=== PATIENT | male | born 1975 | race Two or more races ===

== ENCOUNTER 2017-01-30 01:36 | Emergency (ER) | payer MEDICAID ==
[~2017-01-30] VITALS: Ht 182.9 cm; Wt 99.0 kg
[2017-01-30] MEDS ORDERED: VISCOUS LIDOCAINE 2% 15 ML UDC PO STA (03:45)
[2017-01-30] MEDS ORDERED: FAMOTIDINE 20MG TABLET PO ONE (03:45)
[2017-01-30] MEDS ORDERED: MAGNESIUM/ALUMINUM HYDROXIDE/SIMETHICONE 30ML UDC PO STA (03:45)
[2017-01-30] MEDS ORDERED: DICYCLOMINE 10 MG/5 ML ORAL SYR PO STA (03:45)
[2017-01-30] MEDS ORDERED: KETOROLAC 30MG/ML VIAL IV STA (04:52)
[2017-01-30] MEDS ORDERED: SODIUM CHLORIDE 0.9% 1,000 ML IV ONE (04:52)
[2017-01-30 05:00] VITALS: BP 116/74
[2017-01-30 05:14] LABS: BASOPHILS % 0.3 % (0.0-2.0); EOSINOPHILS % 0.5 % (0.0-5.0); HEMATOCRIT. 46.4 % (42.0-52.0); HEMOGLOBIN. 15.5 g/dL (14.0-18.0); LYMPHOCYTES % 10.3 % (20.0-50.0); MEAN CORPUSCULAR HEMOGLOBIN 26.7 pg (28.0-32.0); MEAN CORPUSCULAR VOLUME 79.8 fL (80.0-94.0); MEAN PLATELET VOLUME 8.3 fl (7.4-10.4); MONOCYTES % 5.6 % (2.0-8.0); NEUTROPHILS % 83.3 % (40.0-76.0); PLATELET 202 x1000/uL (130-400); RED BLOOD CELL COUNT 5.82 mill/uL (4.7-6.1); RED CELL DISTRIBUTION WIDTH 14.8 % (11.6-14.6)
[2017-01-30 05:20] LABS: INR 1.1; PROTHROMBIN TIME 11.2 sec (9.4-11.6)
[2017-01-30 06:58] LABS: CHLORIDE 101 mEq/L (98-107)
[2017-01-30 07:07] LABS: CARBON DIOXIDE 21 mEq/L (21-32); TROPONIN I < 0.02 ng/mL (0.00-0.04)
== END 2017-01-30 05:26 | disposition home or self-care (01) ==
LOC: ER 01:36
DX: R12 Heartburn (principal); F17.210 Nicotine dependence, cigarettes, uncomplicated
CPT/HCPCS: 36415; 80053; 83690; 84484; 85025; 85610; 99285; J1885; J7030